=== PATIENT | male | born 1970 | race Caucasian/White ===

== ENCOUNTER 2017-10-05 09:45 | Emergency (ER) | payer MEDICAID, OTHER ==
--- NOTE | 2017-10-05 10:48 | EDPHY ---
H & P Smoking Status: Never smoked Time Seen by Provider: 10/05/17 10:03 HPI/ROS: CHIEF COMPLAINT: Bipolar, noncompliant with medications HISTORY OF PRESENT ILLNESS: 47-year-old male presents to the emergency department with a history of bipolar. He is part of the [employer] program as well as an open client of [facility] and apparently has been noncompliant with his medications. He takes lithium and olanzapine. The patient states that he has been taking his medications as prescribed however the staff says otherwise. He denies substance abuse. Denies auditory or visual hallucinations. He denies any physical complaints at this time. The patient had a roommate until 08/27/2017 and since that time the staff notes that he has had a steady decline. The staff at [employer] who are at bedside states that he is "unmanageable" and requires hospitalization. REVIEW OF SYSTEMS: Constitutional: No fever, no chills. Eyes: No double or blurry vision. ENT: No sore throat. Respiratory: No cough, no shortness of breath. Cardiac: No chest pain. Gastrointestinal: No abdominal pain, vomiting or diarrhea. Genitourinary: No dysuria. Musculoskeletal: No neck or back pain. Skin: No rashes. Neurological: No headache. (Bhumi Castle) Past Medical/Surgical History: Bipolar with psychosis (Bhumi Castle) Social History: Single and lives independently (Bhumi Castle) Physical Exam: General Appearance: Alert, no distress. Eyes: Pupils equal and round. Extraocular motions are all intact. ENT: Mouth: Mucous membranes moist. Respiratory: No wheezing, rhonchi, or rales, lungs are clear to auscultation. Cardiovascular: Regular rate and rhythm. Gastrointestinal: Abdomen is soft and nontender, no masses, no rebound or guarding, bowel sounds normal. Neurological: Alert and oriented x 3, cranial nerves II through XII grossly intact Skin: Warm and dry, no rashes. Musculoskeletal: Nontender to palpate along the cervical, thoracic or lumbar spine. Neck is supple. Extremities: Full range of motion and no peripheral edema. Psychiatric: Patient is oriented X 3, there is no agitation. (Bhumi Castle) Constitutional: Initial Vital Signs Temperature (C) 36.8 C 10/05/17 09:50 Heart Rate 85 10/05/17 09:50 Respiratory Rate 16 10/05/17 09:50 Blood Pressure 157/96 H 10/05/17 09:50 O2 Sat (%) 94 10/05/17 09:50 O2 Delivery Mode Room Air Allergies/Adverse Reactions: lurasidone [From Latuda] Allergy (Verified 10/05/17 09:48) Home Medications: Medication Instructions Recorded [place] Carbonate 150 mg PO HS 10/05/17 [place] Carbonate ER [Lithobid 300 1,800 mg PO HS 10/05/17 mg (*)] Lorcaserin HCl [Belviq Xr] 20 mg PO HS 10/05/17 OLANZapine [Zyprexa] 10 mg PO HS 10/05/17 metFORMIN SR [Glucophage XR 500 mg 1,500 mg PO HS 10/05/17 (*)] Medical Decision Making ED Course/Re-evaluation: 47-year-old male presents with a known history of bipolar. He has been noncompliant with his medications. He was placed on an M1 hold. He was evaluated by mental health and they are looking for placement. (Bhumi Castle) 1700: Patient is signed out to me at change of shift. Patient is awaiting placement. Patient has a hold. Placement was obtained. However, they would not take the patient less his blood pressure was less than 150 systolic. Patient was given clonidine 0.1 mg orally. On recheck the patient was doing well. He was given Ativan 1 mg orally. Repeat systolic blood pressure was 148. Prior to transfer the patient was given clonidine 0.1 mg orally. (Amberly Lund) Differential Diagnosis: Depression including functional and major depression, situational depression, medication side effect, drugs and alcohol abuse. (Bhumi Castle) Other Provider: The patient was evaluated and managed by the Physician Leather Lacer. I discussed the patient's presentation and course with the midlevel provider with them and agree with the evaluation. My co-signature indicates that I have reviewed this chart and I agree with the findings and plan of care as documented. I am the secondary supervising physician. (Willa Pereira) Care Turn Over: Care will be turned over to Dr. Amberly Lund at 5:00 p.m., shift change, for disposition and plan. (Bhumi Castle) - Data Points Laboratory Results: Laboratory Results 10/05/17 10:15 10/05/17 10:15 Medications Given: Discontinued Medications Clonidine (Catapres) 0.1 mg PO EDNOW ONE Stop: 10/05/17 20:05 Last Admin: 10/05/17 20:20 Dose: 0.1 mg Clonidine (Catapres) 0.1 mg PO EDNOW ONE Stop: 10/05/17 21:46 Last Admin: 10/05/17 21:48 Dose: 0.1 mg Lorazepam (Ativan) 1 mg PO EDNOW ONE Stop: 10/05/17 20:43 Last Admin: 10/05/17 20:47 Dose: 1 mg Departure - Departure Disposition: Other Psych, Not [place] Clinical Impression: Bipolar 1 disorder Condition: Good Referrals: Brett Solorio [Primary Care Provider] - As per Instructions
[2017-10-05 10:57] LABS: PLATELET COUNT 288 10^3/uL (150-400)
[2017-10-05] MEDS ORDERED: LORazepam 1 MG TAB PO ONE (20:42)
[2017-10-05 23:45] VITALS: BP 139/98
== END 2017-10-05 23:45 ==
DX: F31.9 Bipolar disorder, unspecified (principal)
CPT/HCPCS: 80305; G0480